=== PATIENT | male | born 1935 | race Caucasian/White ===

== ENCOUNTER → 2017-10-09 | Outpatient (CLI) | payer OTHER ==
[~2017-10-09] MED LIST: ACYCLOVIR 400400 MG PO; ASPIRIN EC81 M1 PO; ATROVENT15 ML INH; CEPHALEXIN 500500 M3 PO; COMBIVENT INH; COMBIVENT RESPIM4 GM IH; FISH OIL 1,001000 M2 PO; GABAPENTIN 100100 MG PO; IMDUR 30 MG TAB30 M1 PO; LOPRESSOR25 PO; NIASPAN 500 MG500 M1 PO; NITROGLYCERIN0.4 MG SUBLING; OMEPRAZOLE40 MG PO; PLAVIX 75 MG TA75 MG PO; TYLENOL325 MG PO; ZETIA10 MG PO
== END ==
LOC: M.ULTRA 10:55
DX: I71.4 Abdominal aortic aneurysm, without rupture (principal)

== ENCOUNTER → 2018-01-12 | Outpatient (CLI) | payer OTHER | LOC: M.ULTRA 12:22 | DX: I73.9 Peripheral vascular disease, unspecified (principal); I25.10 Atherosclerotic heart disease of native coronary artery without angina pectoris; I71.4 Abdominal aortic aneurysm, without rupture; I27.20 Pulmonary hypertension, unspecified; J44.9 Chronic obstructive pulmonary disease, unspecified; Z95.1 Presence of aortocoronary bypass graft ==

== ENCOUNTER 2020-08-24 05:35 | Inpatient (IN) | payer OTHER ==
[2020-08-24] VITALS (28 sets, daily range): BP systolic 77–147; BP diastolic 40–70
[~2020-08-24] VITALS: Ht 167.6 cm; Wt 58.7 kg
[2020-08-24] MEDS ORDERED: PROAIR HFA8.5 GM INH (05:50)
[2020-08-24 06:03] LABS: ABSOLUTE EOSINOPHILS 0.3 thou/uL (0.0-0.7); ABSOLUTE LYMPHOCYTES 2.5 thou/uL (0.8-5.3); ABSOLUTE MONOCYTES 0.9 thou/uL (0.0-1.2); BASOPHILS 0.4 %; EOSINOPHILS 2.6 %; HEMATOCRIT 46.9 % (42.0-52.0); HEMOGLOBIN 15.5 gm/dL (14.0-18.0); LYMPHOCYTES 23.4 %; MCV 96.9 fL (80.0-100.0); NUCLEATED RBCS 0 /100WBC; PLATELET COUNT* 326 thou/uL (150-400); POLYS 65.6 %; RBC 4.84 mil/uL (4.50-6.00); RDW-CV 13.4 % (10.5-14.5); WBC 10.7 thou/uL (4.0-11.0)
[2020-08-24 06:14] LABS: INR 0.9; PROTIME 10.1 Seconds (9.20-11.50)
[2020-08-24 06:23] LABS: CALCIUM 9.1 mg/dL (8.5-10.1); CREATININE 0.8 mg/dL (0.6-1.3); POTASSIUM 5.6 mmol/L (3.5-5.1)
[2020-08-24 06:36] LABS: ALBUMIN 4.1 g/dL (3.4-5.0); MAGNESIUM 2.4 mg/dL (1.8-2.4); TOTAL BILIRUBIN 0.3 mg/dL (<0.1-1.0); TOTAL PROTEIN 7.1 g/dL (6.4-8.2)
--- NOTE | 2020-08-24 11:14 | NUR ---
RIGHT BASILIC VESSEL ACCESSED FOR 5 NEW ZEALANDER TRIPLE LUMEN PICC. LINE PRE-TRIMMED TO 37CM AND ADVANCED TO THE ZERO KYLE WITH NO RESISTANCE MET. UPPER ARM CIRCUMFERENCE ABOVE INSERTION SITE= 9". SHERLOCK MAGNET AND 3CG CONFIRMATION OF TIP TERMINATION AT THE CAVOATRIAL JUNCTION APPRECIATED. GUIDE WIRE REMOVED, LINE FLUSHED AND INSERTION SITE DRESSED. REPORT GIVEN TO TALI MATA.
--- NOTE | 2020-08-24 13:12 | EKG ---
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: TB : 1935 Requested By: Evelyne Nina Order Number: [id number] MD: Germain Orlando Measurements Intervals [place] Rate: 92 P: 63 MT: 133 QRS: 70 QRSD: 113 T: QT: 298 QTc: 369 Interpretive Statements Sinus rhythm Ventricular bigeminy Low voltage, extremity leads Baseline wander in lead(s) II,III,aVL,aVF,V1,V2,V3,V4,V5 Compared to ECG 03/17/2016 17:40:19 Ventricular premature complex(es) now present Electronically Signed On 08-24-2020 13:12:37 CDT by Germain Orlando [email or web address] <ELECTRONICALLY SIGNED> By: Germain Orlando MD, [facility] 08/24/20 1312 0545 0545 Germain Orlando MD, [facility] /EPI
--- NOTE | 2020-08-24 13:14 | EKG ---
[place] [address] ELECTROCARDIOGRAM REPORT Name: SUDHAEULOGIO Bhargav Room: [address] ADM IN M.R.#: [id number] Admission: 08/24/20 Attend Phys: Nathanael Crook Discharge: Date of : 31 Date of Service: 08/24/20 0549 Report #: [id number] THIS REPORT FOR: //name// [facility] ED Test Date: 2020-08-24 Test Time: 05:49:45 Pat Name: EULOGIO HALEY Department: Room: [address] Gender: M Hog Tender: BOB : 1935 Requested By: Evelyne Nina Order Number: [id number] Reading MD: Germain Orlando Measurements Intervals [place] Rate: 97 P: 67 MA: 173 QRS: 76 QRSD: 117 T: -59 QT: 396 QTc: 503 Interpretive Statements Sinus rhythm pvc's Nonspecific intraventricular conduction delay Low voltage, extremity leads Nonspecific T abnormalities, lateral leads Baseline wander in lead(s) I,II,aVR,aVF Compared to ECG 08/24/2020 05:45:26 no change Electronically Signed On 08-24-2020 13:13:53 CDT by Germain Orlando [email or web address] <ELECTRONICALLY SIGNED> By: Germain Orlando MD, [facility] 08/24/20 1313 0549 0549 Germain Orlando MD, [facility] /EPI
--- NOTE | 2020-08-24 13:38 | 2DMMODE ---
[place] [address] 2 D/M-MODE ECHOCARDIOGRAM Name: EULOGIO HALEY Room: [address] IN [facility]#: [id number] Admission: 08/24/20 Attend Phys: Nathanael Crook Discharge: Date of : 31 Date of Service: 08/24/20 1338 Report #: [id number] THIS REPORT FOR: cc: Erinn Medeiros,Erinn Leblanc,Germain Mcnamara MD [facility] ~ APPROVED REPORT Study performed: 08/24/2020 09:04:33 EXAM: Comprehensive 2D, Doppler, and color-flow Echocardiogram Patient Location: In-Patient Room #: er Status: routine BSA: 1.60 HR: 74 bpm BP: 98/53 mmHg Rhythm: NSR Other Information Study Quality: Good Indications Congestive Heart Failure Elevated Troponin 2D Dimensions IVSd: 10.67 (7-11mm) LVOT Diam: 20.52 (18-24mm) LVDd: 43.53 mm PWd: 10.39 (7-11mm) LVDs: 36.65 (25-40mm) Aortic Root: 34.81 mm Aortic Valve AoV Peak Corbin.: 0.93 m/s AO Peak Gr.: 3.45 mmHg LVOT Max P.05 mmHg AO Mean Gr.: 1.56 mmHg LVOT Mean P.65 mmHg LVOT Max V: 0.87 m/s AO V2 VTI: 15.79 cm LVOT Mean V: 0.60 m/s ISI (VTI): 2.52 cm2 LVOT V1 VTI: 12.06 cm Mitral Valve E/A Ratio: 0.59 MV Decel. Time: 310.79 [place] [address] 2 D/M-MODE ECHOCARDIOGRAM Name: EULOGIO HALEY Room: [address]#: [id number] Admission: 08/24/20 Attend Phys: Nathanael Crook Discharge: Date of : 31 Date of Service: 08/24/20 1338 Report #: [id number] MV E Max Corbin.: 0.50 m/s MV PHT: 90.13 ms MVA (PHT): 2.44 cm2 TDI E/Lateral E': 7.14 E/Medial E': 6.25 Medial E' Corbin.: 0.08 m/s Lateral E' Corbin.: 0.07 m/s Pulmonary Valve PV Peak Corbin.: 0.83 m/s PV Peak Gr.: 2.76 mmHg Left Ventricle The left ventricle is normal size. Regional wall motion abnormalities are noted. There is normal left ventricular wall thickness. Left ventricular systolic function is normal. The left ventricular ejection fraction is within the normal range. LVEF is 55-60%. Grade I - abnormal relaxation pattern. Right Ventricle The right ventricle is normal size. The right ventricular systolic function is normal. Atria The left atrium size is normal. The right atrium size is normal. Aortic Valve Mild aortic valve sclerosis. No aortic regurgitation is present. There is no aortic valvular stenosis. Mitral Valve The mitral valve is normal in structure. There is no mitral valve regurgitation noted. No evidence of mitral valve stenosis. Tricuspid Valve The tricuspid valve is normal in structure. There is trace tricuspid valve regurgitation noted. Pulmonic Valve The pulmonary valve is normal in structure. There is no pulmonic valvular regurgitation. Great Vessels The aortic root is normal in size. IVC is normal in size and collapses >50% [place] [address] 2 D/M-MODE ECHOCARDIOGRAM Name: EULOGIO HALEY Room: [address]#: [id number] Admission: 08/24/20 Attend Phys: Nathanael Crook Discharge: Date of : 31 Date of Service: 08/24/20 1338 Report #: [id number] Pericardium There is no pericardial effusion. <Conclusion> LVEF is 55-60%. Mild aortic valve sclerosis. <ELECTRONICALLY SIGNED> By: Germain Orlando MD, FAC 08/24/20 1338 37 37 Germain Orlando MD, [facility] /INF
[2020-08-24 15:11] LABS: URINE BILIRUBIN NEGATIVE (Negative); URINE BLOOD NEGATIVE (Negative); URINE CLARITY CLEAR; URINE COLOR YELLOW; URINE GLUCOSE-RANDOM NEGATIVE (Negative); URINE KETONES NEGATIVE (Negative); URINE LEUKOCYTES-REFLEX NEGATIVE (Negative); URINE NITRITE-REFLEX NEGATIVE (Negative); URINE PROTEIN NEGATIVE (Negative); URINE UROBILINOGEN 0.2 E.U./dl (0.2-1.0)
--- NOTE | 2020-08-24 17:59 | NUR ---
FROM APPROX 1630 TO 1710 THIS FACILITY WAS UNDER A [place] WARNING. PT MOVED TO [facility] FOR SAFETY UNDER THE DIRECTION OF MANAGEMENT. PT VITALS MONITORED MANUALLY, VS REMAINED STABLE. PT REMAINED ON 3L NC. PT DENIED ANY CONCERNS OR NEEDS THROUGHOUT EVENT. PT RETURNED TO ROOM WITHOUT INCIDENT AND PLACED BACK ON MONITOR. PT REMAINS STABLE AT THIS TIME. WILL CONTINUE TO MONITOR.
--- NOTE | 2020-08-24 18:47 | NUR ---
END OF SHIFT: PTS SBP BELOW 100 AT TIMES, MAP AT OR ABOVE 60. NO S/S DISTRESS. DENIES PAIN OR OTHER CONCERNS. REMAINS ON 3L NC, PICC FLUSHES AND DRAWS, LINE S/L. UP TO COMMODE FOR VOIDS AND BM'S. STEADY WITH WALKER AND S/B ASSIST, NEEDS FREQUENT REMINDING TO SLOW DOWN AND STAY WITH THE WALKER, IS NOT SAFE TO AMBULATE INDEPENDENTLY. PT RESTING COMFORTABLY IN BED. WILL CONTINUE TO MONITOR.
[2020-08-25] VITALS (22 sets, daily range): BP systolic 90–112; BP diastolic 40–57
[2020-08-25 05:25] LABS: MCV 96.8 fL (80.0-100.0); MPV 7.5 fl. (7.2-11.1); RBC 3.62 mil/uL (4.50-6.00); RDW-CV 13.3 % (10.5-14.5); WBC 8.6 thou/uL (4.0-11.0)
[2020-08-25 05:29] LABS: HEMOGLOBIN 11.6 gm/dL (14.0-18.0)
[2020-08-25 05:36] LABS: CALCIUM 8.8 mg/dL (8.5-10.1); CREATININE 0.6 mg/dL (0.6-1.3); MAGNESIUM 2.3 mg/dL (1.8-2.4); TROPONIN-I LEVEL 0.25 ng/mL (<0.06)
[2020-08-25 05:45] LABS: POTASSIUM 3.7 mmol/L (3.5-5.1)
[2020-08-25 06:07] LABS: HEMATOCRIT 35.5 % (42.0-52.0); HEMOGLOBIN 11.8 gm/dL (14.0-18.0); MCH 31.8 pg (26.0-34.0); MCHC 33.3 g/dL (28.0-37.0); MCV 95.7 fL (80.0-100.0); MPV 7.6 fl. (7.2-11.1); RBC 3.71 mil/uL (4.50-6.00); RDW-CV 13.1 % (10.5-14.5); WBC 9.2 thou/uL (4.0-11.0)
--- NOTE | 2020-08-25 06:40 | NUR ---
ASSESSMENTS CHARTED. PATIENT RESTING COMFORTABLY IN BED ALL NIGHT. DENIES PAIN OR DISCOMFORT. PATIENT DENIES NEEDING TO VOID OR HAVE BOWEL MOVEMENTS ALL SHIFT. PO INTAKE ADEQUATE. METOPROLOL HELD FOR BRADYCARDIA AND HYPOTENSION, PATIENT DID NOT NEED TO BE ON LEVOPHED THIS SHIFT. HEMOGLOBIN RETURNED WITH SIGNIFICANT DECREASE FROM 15.5 [address]POKE [address]. GREEN, ORDERS RECIEVED. VSS
--- NOTE | 2020-08-25 09:15 | NUR ---
START OF SHIFT: ASSUMED CARE OF PT 0700. PT FOUND TO BE SLEEPING, CONT MONITOR IN PLACE, 3 L NC, NO S/S DISTRESS, VSS, MAP AT 60 OR GREATER. ASSESSMENT COMPLETED, UP TO COMMODE FOR ONE SMALL VOID, COMPLETE BATH GIVEN, MORNING MEDS ADMINISTERED, UP TO CHAIR FOR BREAKFAST. PT DENIES PAIN AND SOA. WILL CONTINUE TO MONITOR.
[2020-08-25 13:56] LABS: HEMATOCRIT 37.6 % (42.0-52.0); HEMOGLOBIN 12.4 gm/dL (14.0-18.0)
--- NOTE | 2020-08-25 14:52 | NUR ---
ICU ROUNDS: Tele status. On 3L o2, does not wear home o2. Continues to smoke. Cardiology following. Pt was sound asleep when CM went to assess, left voicemail for Pt's granddtr, await call back.
--- NOTE | 2020-08-25 15:21 | CON ---
[address] [address] CONSULTATION Name: EULOGIO HALEY Room: [address] IN [place].#: [id number] Admission: 08/24/20 Attend Phys: Nathanael Abbott, Discharge: Date of : 31 Report #: [id number] THIS REPORT FOR: cc: Erinn Medeiros Linda J. DO ~ Blick, David R. MD [facility] DATE OF SERVICE: 08/24/2020 CARDIOLOGY CONSULTATION HISTORY OF PRESENT ILLNESS: The patient is an 85-year-old single white male who I was asked to see in the hospital today after he complained of being short of breath. The patient has an extensive past medical history. He apparently had coronary artery bypass surgery at [facility] in 1999. His last stress test in 2015 showed no evidence of ischemia. He is currently followed by my partner, Dr. Valdemar Hall. He is not very active because of his advanced age. He uses a walker. Recently, he has been more short of breath. He called the ambulance today and was brought to [facility] and admitted. He denied any fever, cough or lower extremity edema. Denies chest pain, palpitations or syncope. Denies any medical noncompliance. PAST SURGICAL AND MEDICAL HISTORY: Otherwise significant for appendectomy, nose surgery, prostatectomy for prostate cancer, thyroid surgery. He has a history of hyperlipidemia. CURRENT MEDICATIONS: Include an inhaler, Imdur, metoprolol. ALLERGIES: HE HAS A PREVIOUS INTOLERANCE TO STATIN DRUGS. FAMILY HISTORY: Negative for heart disease. SOCIAL HISTORY: He is , lives in [place] with a granddaughter. Smokes half pack of cigarettes a day. No alcohol abuse. REVIEW OF SYSTEMS: No history of a stroke. He has a history of COPD. He uses inhaler. No history of liver disease or kidney disease. He had prostate cancer in the past. No chronic skin condition. PHYSICAL EXAMINATION: GENERAL: Revealed an elderly male, lying in bed, appeared in no distress. VITAL SIGNS: He had a blood pressure 110/50, pulse 70, he is afebrile. HEENT: He was anicteric. Conjunctivae pink. Mucous membranes moist. NECK: Veins do not appear distended. CHEST: Decreased [place] [address] CONSULTATION Name: EULOGIO HALEY Room: [address]#: [id number] Admission: 08/24/20 Attend Phys: Nathanael Abbott, Discharge: Date of : 31 Report #: [id number] CARDIOVASCULAR: Regular rate and rhythm. ABDOMEN: Soft. EXTREMITIES: Had no pitting edema. SKIN: Cool and dry. NEUROLOGIC: Nonfocal. His ECG showed a sinus rhythm, evidence of ventricular bigeminy, nonspecific T-wave changes were noted. The patient had an echocardiogram performed today that showed an ejection fraction of 60% with mild aortic sclerosis. The patient had x-rays in the Emergency Room today included a portable chest x-ray that showed normal heart size, tortuous aorta, chronic interstitial lung disease. No pleural effusion. In 2007, the patient had lower extremity Doppler study performed. LABORATORY WORK: In the Emergency Room today, his BUN is 16, creatinine 0.8. His troponin 0.46. His BNP 4619. TSH 0.6. White blood cell count 10.7, hemoglobin 15.5. IMPRESSION AND RECOMMENDATIONS: 1. Chronic obstructive pulmonary disease. 2. Tobacco abuse. 3. Previous coronary artery bypass surgery. No recent angina. I would continue aspirin a day. 4. Hyperlipidemia. The patient cannot tolerate statin drugs. 5. History of prostate cancer. <ELECTRONICALLY SIGNED> By: Germain Orlando MD, FACC 08/25/20 1521 1449 1531Dstephanie Orlando MD, FACC /nt
--- NOTE | 2020-08-25 16:30 | NUR ---
PT TRANSFER TO TELE BED 210 PER ORDERS. REPORT GIVEN. NO S/S DISTRESS. VSS. PT AGREES TO PLAN OF CARE.
--- NOTE | 2020-08-25 16:31 | NUR ---
PT NEEDS FREQUENT REMINDING OF SAFETY PRECAUTIONS WHEN AMBULATING. PT TENDS TO [place] WITH THE WALKER OUT IN FRONT OF HIM WITH ARMS EXTENDED. PT DOES NOT SHOW SAFETY AWARENESS OF MONITOR CORDS. EDUCATION VERBALIZED TO PT HE AMBULATES. PT OFTEN STATES "YEAH I KNOW", HOWEVER; PT OFTEN DOES NOT COMPLY WITH SAFETY INSTRUCTIONS. TELE NURSE INFORMED DURING REPORT THAT PT REQUIRES CLOSE SUPERVISION WITH AMBULATION.
--- NOTE | 2020-08-25 17:24 | NUR ---
RECIEVIED REPORT FROM CLARISSE RN IN ICU OF EXPECTED TRANSFER AT 1622- PT ARRIVED TO ROOM 210 VIA W/C AT 1655- SBA TO BED SIDE RECLINER- MASTER BARBER PLACED ORDERED, TRACING SR- BP NOTED SOFT AT 97/50, MAP > 60- BS NOTED TO BE 113, WITH NO INSULIN REQUIRED- PRIOR ASSESSMENT REVIEWED AND THIS NURSE AGREES-PT DENIES ANY C/O PAIN/DISCOMFORT AT THIS TIME- CALL LIGHT AND PERSONAL BELONGINGS WITH IN REACH- ALL NEEDS MET AT THIS TIME
[2020-08-25 22:59] LABS: HEMATOCRIT 34.9 % (42.0-52.0); HEMOGLOBIN 11.5 gm/dL (14.0-18.0)
[2020-08-26 04:11] VITALS: BP 125/53
[2020-08-26 05:30] LABS: HEMATOCRIT 34.5 % (42.0-52.0); HEMOGLOBIN 11.3 gm/dL (14.0-18.0); MCH 31.8 pg (26.0-34.0); MCHC 32.7 g/dL (28.0-37.0); MPV 8.2 fl. (7.2-11.1); RBC 3.56 mil/uL (4.50-6.00); RDW-CV 13.6 % (10.5-14.5); WBC 14.6 thou/uL (4.0-11.0)
[2020-08-26 05:47] LABS: ALBUMIN 2.7 g/dL (3.4-5.0); CALCIUM 7.9 mg/dL (8.5-10.1); CREATININE 0.7 mg/dL (0.6-1.3); MAGNESIUM 2.4 mg/dL (1.8-2.4); POTASSIUM 3.9 mmol/L (3.5-5.1); TOTAL BILIRUBIN 0.2 mg/dL (<0.1-1.0); TOTAL PROTEIN 5.1 g/dL (6.4-8.2)
[2020-08-26 08:00] VITALS: BP 108/50
[2020-08-26 12:16] VITALS: BP 119/63
--- NOTE | 2020-08-26 13:13 | NUR ---
Dr recommending skilled at dc, FAYE spoke with Pt and granddtr, both in agreement with skilled. Faxed referral to Dolly at [facility], requested that they initiate insurance auth if able to accept clinically, since [employer] can take a few days to auth. FAYE asked liaison to have PT see Pt today. Pt states that he uses a walker PRN at home, granddtr assists as needed. Anticipate dc in a few days.
[2020-08-26 15:51] VITALS: BP 104/60
[2020-08-26 20:00] VITALS: BP 113/50
[2020-08-27] VITALS (7 sets, daily range): BP systolic 90–110; BP diastolic 45–66
[2020-08-27 04:53] LABS: HEMATOCRIT 36.5 % (42.0-52.0); HEMOGLOBIN 11.9 gm/dL (14.0-18.0); MCH 31.9 pg (26.0-34.0); MCHC 32.6 g/dL (28.0-37.0); MCV 97.8 fL (80.0-100.0); MPV 8.8 fl. (7.2-11.1); RBC 3.73 mil/uL (4.50-6.00); RDW-CV 13.6 % (10.5-14.5); WBC 12.2 thou/uL (4.0-11.0)
[2020-08-27 05:10] LABS: CALCIUM 8.4 mg/dL (8.5-10.1); CREATININE 0.7 mg/dL (0.6-1.3)
--- NOTE | 2020-08-27 11:57 | NUR ---
CM faxed updated PT note to [facility], they are working on insurance auth for skilled. CM asked that OT see Pt today, CM to fax that note once available. Anticipate dc to skilled tomorrow, once auth is received. Following.
--- NOTE | 2020-08-27 19:26 | NUR ---
BEDSIDE REPORT GIVEN TO NIGHT RN.
[2020-08-28 04:06] VITALS: BP 132/78
--- NOTE | 2020-08-28 08:54 | NUR ---
PT OFF UNIT TO XRY
--- NOTE | 2020-08-28 09:26 | NUR ---
PT RETURN TO UNIT 0989
[2020-08-28 12:00] VITALS: BP 138/54
--- NOTE | 2020-08-28 13:07 | NUR ---
Anticipate dc soon. SNF continues to work on insurance auth, per Dolly at [facility].
[2020-08-28 16:00] VITALS: BP 108/56
--- NOTE | 2020-08-28 18:41 | NUR ---
PT HAD CHEST CT TODAY AND STARTED ON NEW IV ABX. TOOK IN GOOD PO AND DENIED PAIN.
[2020-08-28 20:00] VITALS: BP 108/54
[2020-08-29 00:49] VITALS: BP 134/59
[2020-08-29 05:04] VITALS: BP 114/54
[2020-08-29 08:00] VITALS: BP 113/61
--- NOTE | 2020-08-29 10:16 | NUR ---
ASSUMED CARE OF PATIENT THIS AM AT 0730. PATIENT IS ALERT AND ORIENTED X 4. HE DENIES PAIN AND DISCOMFORT. PATIENT ASSISTED WITH ADLS. TELE SHOWS SINUS SIMI. IV ANTIBIOTICS CONTINUED. PATIENT IS RESTING AT THIS TIME CALL LIGHT IS IN REACH.
[2020-08-29 12:06] VITALS: BP 98/58
[2020-08-29 16:00] VITALS: BP 111/58
[2020-08-29 20:00] VITALS: BP 117/63
[2020-08-30 00:10] VITALS: BP 98/49
[2020-08-30 04:00] VITALS: BP 121/54
[2020-08-30 08:00] VITALS: BP 105/50
[2020-08-30 12:00] VITALS: BP 100/52
--- NOTE | 2020-08-30 14:09 | NUR ---
ASSUMED CARE OF PATIENT THIS AM AT 0730. PATIENT IS ALERT, ORIENTED TO PLACE AND TIME. TELE SHOWS SR WITH [facility]. PATIENT ASSISTED UP TO THE CHAIR FOR MEALS. BLOOD SUGARS MONITORED. PATIENT CONTINUES ON O2 AT 3 LITERS. NO FALLS OR INJURY. WILL CONTINUE TO MONITOR SAFETY.
[2020-08-30 16:00] VITALS: BP 100/52
[2020-08-30 20:00] VITALS: BP 128/71
[2020-08-31] VITALS: BP 112/54
[2020-08-31 04:13] LABS: HEMATOCRIT 34.3 % (42.0-52.0); HEMOGLOBIN 11.6 gm/dL (14.0-18.0); MCH 32.8 pg (26.0-34.0); MCHC 33.7 g/dL (28.0-37.0); MCV 97.3 fL (80.0-100.0); MPV 8.9 fl. (7.2-11.1); RBC 3.53 mil/uL (4.50-6.00); RDW-CV 13.5 % (10.5-14.5); WBC 9.5 thou/uL (4.0-11.0)
[2020-08-31 04:34] LABS: ALBUMIN 2.4 g/dL (3.4-5.0); CALCIUM 7.8 mg/dL (8.5-10.1); CREATININE 0.6 mg/dL (0.6-1.3); MAGNESIUM 2.3 mg/dL (1.8-2.4); POTASSIUM 4.6 mmol/L (3.5-5.1); TOTAL BILIRUBIN 0.3 mg/dL (<0.1-1.0); TOTAL PROTEIN 4.8 g/dL (6.4-8.2)
[2020-08-31 05:35] VITALS: BP 125/68
[2020-08-31 08:00] VITALS: BP 135/53
[2020-08-31] MEDS ORDERED: VIBRAMYCIN 100100 M2 PO (09:57)
[2020-08-31] MEDS ORDERED: AUGMENTIN 875-1 EACH PO (09:57)
[2020-08-31] MEDS ORDERED: PREDNISONE 10 M10 MG PO (09:57)
--- NOTE | 2020-08-31 11:57 | NUR ---
SPOKE TO GRANDDAUGHTER NYA ABOUT DC PLAN. SHE STATES "WHATEVER IT TAKES TO GET HIM HOME. HE DOESNT DO WELL IN A USP OR REHAB UNIT". PT AND FAMILY STATE DNR ON CHART.DISCUSSED POSSIBILITY OF HOME WITH HOSPICE VS HOME WITH HH. GRANDDAUGHTER STATES SHE WOULD LIKE TO MEET WITH HOSPICE TO DISCUSS. FAYE AND DR THAYER NOTIFIED
[2020-08-31 12:00] VITALS: BP 124/82
--- NOTE | 2020-08-31 12:34 | NUR ---
pt bedside [facility], informed this cm she discussed d/c option with pt's granddtr/dpoa, aurelia. sridevi is no longer interested in snf; instead aurelia is considering hospice vs home with hh. zelaya with [facility] hospice they can have a rep at [facility] to meet family to discuss/edu for possible admissions. per alexa, other family members, co-dpoa may be allowed in to meet with hospice as a collective group as they plan to make a decision about comfort care. cm faxed clinicals to [facility] admissions at [phone]. also per [facility], pt lives with granddtr, who is retired and home mostly with pt.
[2020-08-31 16:00] VITALS: BP 100/62
--- NOTE | 2020-08-31 18:08 | NUR ---
PT RESTING IN BED THROUGHOUT SHIFT. PT ANXIOUS AND SOA. SR WITH [facility] ON MONITOR. POOR APPETITE BUT TOLERATES ENSURE. HOSPICE CONSULTED AND DISCUSSED WITH FAMILY. FAMILY AT BS THIS AFTERNOON. CESAR CATH DRAINING CLEAR YELLOW URINE.
[2020-08-31 20:00] VITALS: BP 104/64
[2020-09-01 01:59] VITALS: BP 98/54
[2020-09-01 08:00] VITALS: BP 116/60
[2020-09-01 10:45] VITALS: BP 95/52
--- NOTE | 2020-09-01 11:18 | NUR ---
pt's granddtr,mary stated family decided on [facility]. And,the plan is for [facility] to admit pt at home. michelle to have equip set up at home prior to d/c. Mary Asked cmto fax clinicals. denny advised mary to bring o2 [facility] for transport from [facility] to home. mary stated she was fully aware she needed bring tank to hospital. brenda hodge/michelle stated it will take 2-4 hr to have equip delivered. denny faxed clinicals to [phone]. Michelle phone- [phone].
--- NOTE | 2020-09-01 11:48 | NUR ---
FRANCESCO CHEEMA RN, WITH [facility] CONTACTED TO INFORM SHE WAS COMING TO [facility] TO DO ADMISSION/EVAL AT BEDSIDE
--- NOTE | 2020-09-01 14:08 | NUR ---
eduin rn, with [facility], informed cm she order DME "stat...in should arrive at [pt's] home within two hours." eduin suggested d/c charging pt aroudn "4ish." nayeli notified of this. nayeli to call [facility] as she has decided she isnt coming to pick pt up, instead would like to have him brought home. denny informed nayeli of cost quoted by [facility]. nayeli agreed to payment and called [facility] to provide payment/cc info. denny faxed d/c orders to [facility] at [phone].
[2020-09-01 16:00] VITALS: BP 134/113
[2020-09-01 16:44] VITALS: BP 134/113
--- NOTE | 2020-09-01 17:16 | NUR ---
RECEIVED REPORT AROUND 0715. ASSUMED CARE. IV INTACT RIGHT UPPER ARM. HEART MONITOR ATTACHED AT SR WITH PVC'S. PT LYING IN BED THIS SHIFT. Q2 TURNS. CESAR INTACT. NO PAIN REPORTED. PT ATE MOST OF BREAKFAST AND LUNCH. DISCHARGE ORDERS RECEIVED. PT TO GO HOME WITH HOSPICE. TALKED TO DAUGHTER ABOUT TRANSPORT. TRANSPORT ARRIVED AT 1700. PICC TAKEN OUT. DRESSING APPLIED. HEART MONITOR OFF. DISCHARE PACKET GIVEN TO TRANSPORTER. LEFT VOICEMAIL FOR DAUGHTER ABOUT PICC DRESSING TO KEEP IN PLACE FOR 24HRS. AND WENT OVER NEW MEDS ON DISCHARGE PACKET.
== END 2020-09-01 17:00 | disposition hospice, home (50) | DRG 177 ==
LOC: M.ERS 05:35 → M.TBA-ER 06:40 → M.2W 08:28 → M.TBA-ER 08:28 → M.ICU 08:28 → M.TBA-ER 09:50 → M.ICU 11:01 → M.2W 08-25 16:54 → M.ICU 09-01 17:00 → M.2W 09-01 17:10
PROVIDERS: Emergency Medicine; ADMIT Family Medicine; ATTEND Family Medicine
PROC: B548ZZA Ultrasonography of Superior Vena Cava, Guidance (ICD-10-PCS; principal; 2020-08-24)
PROC: 02HV33Z Insertion of Infusion Device into Superior Vena Cava, Percutaneous Approach (ICD-10-PCS; principal; 2020-08-24)
DX: J15.6 Pneumonia due to other Gram-negative bacteria (principal); J96.21 Acute and chronic respiratory failure with hypoxia; J44.1 Chronic obstructive pulmonary disease with (acute) exacerbation; J44.0 Chronic obstructive pulmonary disease with (acute) lower respiratory infection; E86.0 Dehydration; F17.210 Nicotine dependence, cigarettes, uncomplicated; I25.10 Atherosclerotic heart disease of native coronary artery without angina pectoris; I71.4 Abdominal aortic aneurysm, without rupture; I95.9 Hypotension, unspecified; E87.70 Fluid overload, unspecified; E87.5 Hyperkalemia; J84.10 Pulmonary fibrosis, unspecified; E78.5 Hyperlipidemia, unspecified; Z20.822 Contact with and (suspected) exposure to COVID-19; Z88.8 Allergy status to other drugs, medicaments and biological substances; Z85.46 Personal history of malignant neoplasm of prostate; Z90.49 Acquired absence of other specified parts of digestive tract; Z95.1 Presence of aortocoronary bypass graft; Z98.49 Cataract extraction status, unspecified eye; Z79.82 Long term (current) use of aspirin; Z79.899 Other long term (current) drug therapy